=== PATIENT | female | born 1985 | race Caucasian/White ===

== ENCOUNTER 2022-05-31 17:33 | Inpatient (IN) | payer OTHER ==
[~2022-05-31] VITALS: Ht 157.5 cm; Wt 70.9 kg
--- NOTE | 2022-05-31 17:50 | NUR ---
Patient triaged and placed in AMBULANCE 1. VSS and patient appears in no acute distress at this time. Accompanied by cloth framer, awaiting available bed, and MD notified of need for MSE.
--- NOTE | 2022-05-31 17:55 | NUR ---
Pt presents to the ER BIB BLS c/o chest wall pain. Pt denies NVD. Pt in NAD VSS. Pt notes possible anxiety.
[2022-05-31 17:57] VITALS: BP_SYST 143
--- NOTE | 2022-05-31 18:00 | NUR ---
Pt giving blood sample for specimen collection with the upper and bottom lacer hand.
[2022-05-31] MEDS ORDERED: KETOROLAC TROMETHAMINE 60 MG/2 ML VIAL IM ONE (18:15)
--- NOTE | 2022-05-31 18:49 | NUR ---
Pt with radiology for CT scan. Pt transferred via W/C.
[2022-05-31 18:52] LABS: BASOPHILS % (AUTO) 0.5 % (0.0-2.0); EOSINOPHILS # (AUTO) 0.2 K/uL (0.0-0.4); EOSINOPHILS % (AUTO) 2.7 % (0.0-4.0); HEMATOCRIT 34.1 % (36-48); HEMOGLOBIN 10.8 g/dL (12.0-16.0); LYMPHOCYTES # (AUTO) 1.7 K/uL (1.0-5.5); LYMPHOCYTES % (AUTO) 24.4 % (20.5-51.5); MEAN CORPUSCULAR HEMOGLOBIN 25 pg (27-31); MEAN CORPUSCULAR HGB CONC 32 % (32-36); MEAN CORPUSCULAR VOLUME 78 fL (79.0-98.0); MONOCYTES # (AUTO) 0.5 K/uL (0.0-1.0); MONOCYTES % (AUTO) 6.8 % (1.7-9.3); NEUTROPHILS # (AUTO) 4.6 K/uL (1.8-7.7); NEUTROPHILS % (AUTO) 65.6 % (40.0-70.0); PLATELET COUNT (AUTO) 312 K/uL (130-430); RED BLOOD CELL COUNT(AUTO) 4.35 MIL/uL (4.2-6.2); RED CELL DISTRIBUTION WIDTH 16.8 % (9.0-15.0); WHITE BLOOD COUNT (AUTO) 7.1 K/uL (4.8-10.8)
[2022-05-31 19:15] LABS: ANION GAP 11 (5-15); CHLORIDE 102 mmol/L (98-107); CREATININE 0.73 mg/dL (0.55-1.30); GLUCOSE 97 mg/dL (70-99); POTASSIUM 3.7 mmol/L (3.5-5.1); SODIUM SERUM 135 mmol/L (136-145); UREA NITROGEN, BLOOD 20 mg/dL (8-21)
[2022-05-31 19:21] LABS: GFR AFRICAN AMERICAN 115 mL/min (>90)
[2022-05-31 19:25] LABS: ALANINE AMINOTRANSFERASE 32 U/L (12-78); ALBUMIN 3.4 g/dL (3.4-4.8); ASPARTATE AMINOTRANSFERASE 28 U/L (10-37)
[2022-05-31] MEDS ORDERED: *LOVENOX 1MG/KG Q12H/PHARMACY XX ONE (20:00)
[2022-05-31 20:01] LABS: TOTAL BILIRUBIN 0.1 mg/dL (0.0-1.0)
--- NOTE | 2022-05-31 20:20 | NUR ---
COVID SWAB COLLECTED
[2022-05-31] MEDS ORDERED: NITROGLYCERIN 0.4 MG TAB.SUBL SL ONE (21:00)
--- NOTE | 2022-05-31 21:10 | NUR ---
Admit bed requested Patient will be admitted to care of . Admitted to TELE unit. Diagnosis ACUTE CORONARY SYNDROME Inpatient (Yes or No) YES Observation (Yes or No) NO Orientation concerns or request close to nursing station (Yes or No) NO Covid Status PENDINIG On vent or bipap NO Isolation requirements NO Needs a sitter NO From Home (Yes or if No enter name of facility) YES Requires Dialysis (Yes or No) NO Med Rec Completed (Yes of No) PENDING
[2022-05-31 22:36] LABS: INR 0.9 (0.8-1.2); PROTHROMBIN TIME 9.8 SECS (9.5-12.5)
--- NOTE | 2022-05-31 22:51 | NUR ---
Note fatoumata in ED - 06/01/22 at 0155 by [id number] ASSISTING PRIMARY RN; NEIL CATH FR 16 USING ASEPTIC TECHNIQUE, NOTED SEDIMENT URINE OUTPUT YELLOW IN COLOR APPROX 20 CC.
[2022-05-31] MEDS ORDERED: ACETAMINOPHEN 325 MG TABLET PO PRN (23:00)
[2022-05-31] MEDS ORDERED: ONDANSETRON 4 MG ODT TAB PO PRN (23:00)
[2022-05-31] MEDS ORDERED: NALOXONE HCL 0.4 MG/ML AMP (NARCAN) IVP PRN (23:00)
[2022-05-31] MEDS ORDERED: MAG-AL HYDROX/SIMETH 30 ML UDC PO ONE (23:00)
[2022-05-31] MEDS ORDERED: MORPHINE 2 MG/ML INJ. SYRINGE IVP PRN (23:00)
[2022-05-31] MEDS ORDERED: TEMAZEPAM 15 MG CAPSULE PO PRN (23:00)
[2022-05-31] MEDS ORDERED: MORPHINE 4 MG INJ. 4 MG/ML VIAL IVP PRN (23:00)
[2022-05-31] MEDS ORDERED: PANTOPRAZOLE SODIUM 40 MG TAB PO ONE (23:00)
[2022-05-31] MEDS ORDERED: MAG-AL HYDROX/SIMETH 30 ML UDC PO PRN (23:00)
[2022-05-31] MEDS ORDERED: ENOXAPARIN SODIUM 60 MG/0.6 ML SYRINGE ONE (23:28)
--- NOTE | 2022-05-31 23:30 | NUR ---
Patient will be admitted to care of elevated troponin. Admitted to telly unit. Will go to room . Belongings list completed. Complete and up to date summary report printed. SBAR report to be given at bedside with opportunity for questions.with megan MOE
[2022-05-31 23:55] VITALS: BP_SYST 137
--- NOTE | 2022-05-31 23:55 | NUR ---
ADMISSION NOTE Received patient from ER via gurney. Patient admitted with diagnosis of ACUTE CORONARY SYNDROME. Patient is awake, alert, oriented X 4. Patient oriented to hospital room, call light, toileting, pain management and safety-teach back done. Patient informed that their room number is 109C. Personal belongings checked and Belongings List documented. Call light within reach.
--- NOTE | 2022-06-01 05:49 | NUR ---
CONSULTATION PAGED/CALLED Reason for Consultation: ELEVAED TROP Person Who was Notified: DR Shellie BOOTH VIA TEXT Consulting Physician: DR Shellie BOOTH Extrusion Press Adjuster Specialty: Ordering Physician: GUILLERMINA
[2022-06-01] MEDS: NITROGLYCERIN 0.4 MG TAB.SUBL SL PRN ×2 (06:30→18:30)
--- NOTE | 2022-06-01 06:56 | NUR ---
Pt complaining of severe 10/10 crushing chest pain with SOB. 3 doses of SL nitroglycerin given and 1 dose of 4mg morphine with no relief. Informed Dr Shellie Jones ordered STAT EKG
[2022-06-01 06:59] LABS: BASOPHILS % (AUTO) 0.6 % (0.0-2.0); EOSINOPHILS # (AUTO) 0.2 K/uL (0.0-0.4); EOSINOPHILS % (AUTO) 3.8 % (0.0-4.0); HEMATOCRIT 31.3 % (36-48); HEMOGLOBIN 10.3 g/dL (12.0-16.0); LYMPHOCYTES # (AUTO) 2.1 K/uL (1.0-5.5); LYMPHOCYTES % (AUTO) 34.7 % (20.5-51.5); MEAN CORPUSCULAR HEMOGLOBIN 25 pg (27-31); MEAN CORPUSCULAR HGB CONC 33 % (32-36); MEAN CORPUSCULAR VOLUME 77 fL (79.0-98.0); MONOCYTES # (AUTO) 0.6 K/uL (0.0-1.0); MONOCYTES % (AUTO) 9.3 % (1.7-9.3); NEUTROPHILS # (AUTO) 3.1 K/uL (1.8-7.7); NEUTROPHILS % (AUTO) 51.6 % (40.0-70.0); PLATELET COUNT (AUTO) 312 K/uL (130-430); RED BLOOD CELL COUNT(AUTO) 4.05 MIL/uL (4.2-6.2); RED CELL DISTRIBUTION WIDTH 16.5 % (9.0-15.0)
--- NOTE | 2022-06-01 07:22 | NUR ---
Informed Dr Jones of EKG results, ordered chest CT
[2022-06-01 07:26] LABS: CALCIUM 8.4 mg/dL (8.4-11.0); CREATININE 0.71 mg/dL (0.55-1.30); POTASSIUM 3.4 mmol/L (3.5-5.1)
[2022-06-01 07:34] LABS: ALBUMIN 2.9 g/dL (3.4-4.8); TOTAL BILIRUBIN 0.1 mg/dL (0.0-1.0)
[2022-06-01 08:00] VITALS: BP_SYST 109
[2022-06-01] MEDS: PANTOPRAZOLE SODIUM 40 MG TAB PO SCH (08:38)
[2022-06-01] MEDS: ASPIRIN 81 MG TABLET(ECOTRIN) PO SCH (08:38)
[2022-06-01] MEDS ORDERED: *HEPARIN PER PHARMACY XX PRN (10:30)
[2022-06-01] MEDS ORDERED: HEPARIN SODIUM,PORCINE 3000 UNITS/0.6 ML BOLUS IVP PRN (10:30)
[2022-06-01] MEDS ORDERED: HEPARIN SODIUM,PORCINE 2000 UNITS/0.4 ML BOLUS IVP PRN (10:30)
[2022-06-01] MEDS ORDERED: POTASSIUM CHLORIDE 20 MEQ TAB.PRT.SR PO ONE (10:30)
[2022-06-01] MEDS ORDERED: HEPARIN SODIUM,PORCINE 5,000 UNITS/ML VIAL IV ONE (10:45)
[2022-06-01] MEDS: HEPARIN 25,000 UNITS/D5W 250ML 250 ML IV PRN (10:59)
[2022-06-01] MEDS ORDERED: MORPHINE 4 MG INJ. 4 MG/ML VIAL IVP PRN (11:00)
[2022-06-01] MEDS ORDERED: ACETAMINOPHEN 325 MG TABLET PO PRN (11:00)
[2022-06-01] MEDS ORDERED: ONDANSETRON HCL 4 MG/2 ML VIAL IVP PRN (11:00)
[2022-06-01] MEDS ORDERED: NALOXONE HCL 0.4 MG/ML AMP (NARCAN) IVP PRN (11:00)
--- NOTE | 2022-06-01 11:08 | NUR ---
HEPARIN 4000 UNITS IVP GIVEN. HEPARIN DRIP INITIATED AT 900UNIT/HOUR =9ML. PTT ORDERED FOR 1700.
[2022-06-01] MEDS: MORPHINE 2 MG/ML INJ. SYRINGE IVP PRN ×3 (11:17→21:37)
--- NOTE | 2022-06-01 11:34 | NUR ---
DISCHARGE PLANNING Order to transfer to [facility] for heart cath. Per Dr Forrest, Tele level of care, will need to go with heparin drip. Faxed order/pt info to [facility]. Called & spoke with Kane Huitron [employer] value analyst ph [phone], has received order & is being reviewed. CM will be assigned & work on transfer, has my direct #, direct nsg station #, & Dr Forrest cell. Transfer packet with CD to nsg station. Addendum: 06/01/22 at 1433 by Funmi Esquivel RN Called & spoke with Elana [facility] [employer] Property Inspector. States that assigned [facility] CM is Jason & is away from the desk. Sent him a msg to return my call on transfer status. Informed TRP went up again. Earlier today spoke with pt and at bedside & both aware and agreeable with transfer to any [facility] that can do Heart Cath. Addendum: 06/01/22 at 1607 by Funmi Esquivel RN Called & spoke with JOSE Gomez at [facility], states that if trp going up will not take pt to [facility] may need to transfer to [facility] with Cardiac engineer geophysical laboratory. States will discuss with Pao JOSUE. Received call back from Jason at [facility], ph [phone], states spoke with Kane JOSUE & not taking pt due to increase in trp, on Heparin drip, & spoke with pt's nurse & having Chest pain. States to transfer to closest Hospital with engineer geophysical laboratory, [facility] with auth #[id number]. Use the same auth number for transportation, can use any ambulance. Called & spoke with Yovany at [facility], ph [phone] fax [phone], and informed, states to fax order/pt info and will review. Addendum: 06/01/22 at 1645 by Funmi Esquivel RN Called & spoke with Yovany coats CM leaving for the day and no after hrs CM. States will call [facility] if can accept pt. Spoke with pt at bedside and updated, states that is agreeable with [facility] but is not agreeable with [facility], would rather go to [facility] if [facility] does not accept. Called & informed Jason at [facility], ph [phone], states they will not take pt, that pt needs to go to [facility] & [facility] is not a [facility], they will not take pt. If no bed at [facility] will need to stay here until a bed found in a [facility], they are not taking pt. Updated pt's nurse. Informed if get a bed at [facility] to have Production Team Member assist with getting transportation with any ambulance with [facility] Auth#[id number], pt needs Nurse transport for Heparin drip & Tele monitoring. Updated CM Director.
[2022-06-01 12:00] VITALS: BP_SYST 126
--- NOTE | 2022-06-01 13:18 | NUR ---
DR. COOPER AT BEDSIDE.
--- NOTE | 2022-06-01 15:04 | NUR ---
URINE OBTAINE AND TAKEN TO LAB.
[2022-06-01 15:19] LABS: BILIRUBIN,URINE NEGATIVE (NEGATIVE); BLOOD, URINE NEGATIVE (NEGATIVE); CLARITY/URINE CLEAR (CLEAR); COLOR,URINE YELLOW (YELLOW); GLUCOSE,URINE NEGATIVE (NEGATIVE); KETONES,URINE 1+ (NEGATIVE); LEUKOCYTE ESTERASE ,URINE NEGATIVE (NEGATIVE); NITRITE, URINE NEGATIVE (NEGATIVE); PROTEIN URINE NEGATIVE (NEGATIVE); UROBILINOGEN,URINE 0.2 (0.2-1.0)
--- NOTE | 2022-06-01 15:30 | NUR ---
MORPHINE 2MG IVP GIVEN FOR C/P AND H/A 05/27.
[2022-06-01 15:44] LABS: BARBITURATE, URINE NEGATIVE (NEG <=200); BENZODIAZEPINE, URINE NEGATIVE (NEG <=150); CANNABINOID, URINE NEGATIVE (NEG <=50); COCAINE, URINE NEGATIVE (NEG <=150); METHAMPHETAMINES SCREEN,URINE NEGATIVE (NEG <=500); OPIATE, URINE POSITIVE (NEG <=100); PHENCYCLIDINE SCREEN,URINE NEGATIVE (NEG <=25); UR TRICYCLIC ANTIDEPRESSANTS NEGATIVE (NEG <=300); URINE AMPHETAMINE NEGATIVE (NEG <=500); URINE METHADONE NEGATIVE (NEG <=200); URINE OXYCODONE SCREEN NEGATIVE (NEG <=100); URINE PROPOXYPHENE SCREEN NEGATIVE (NEG <=300)
[2022-06-01 16:00] VITALS: BP_SYST 135
--- NOTE | 2022-06-01 16:10 | NUR ---
PT HAD SECOND EPISODE OF N/V. UNABLE TO EAT LUNCH.
--- NOTE | 2022-06-01 17:25 | NUR ---
[facility] CALLED AND STATED THAT THEY WILL TAKE THE PT ONCE THEY HAVE A BED. DR. SARMIENTO MADE AWARE AND STATED PLS SEE IF PT CAN TRANSFER TO [facility]. ABHI GAYTAN MADE AWARE AT STATED SHE WILL FOLLOW UP.
[2022-06-01 17:32] LABS: CALCIUM 8.6 mg/dL (8.4-11.0); CREATININE 0.59 mg/dL (0.55-1.30); POTASSIUM 3.8 mmol/L (3.5-5.1)
--- NOTE | 2022-06-01 17:38 | NUR ---
RECEIVED ORDER FOR ID. KATELYNN HARDY AT THIS TIME.
--- NOTE | 2022-06-01 17:53 | NUR ---
PER LUKAS ,ABHI LAFARO [facility] WAS CONTACTED AND STATED THEY ARE UNABLE TO TAKE THE PT, LUKAS STATED WE WILL WAIT FOR A BED TO COME AVAILABLE AT [facility]. PT MADE AWARE. ZOFRAN IVP GIVEN FOR N/V. PT STATES PAIN IS 3/10 TOLERABLE AT THIS TIME.
--- NOTE | 2022-06-01 18:00 | NUR ---
PT MADE AWARE PTT IS 71.3 A THERAPEUTIC LEVEL, NEW PTT ORDERED FOR FOR 5AM.
--- NOTE | 2022-06-01 19:47 | NUR ---
ENDORSED ALL CARE TO ZEE RN, PT'S AUTHORIZATION CODE FOR AMBULANCE ENDORSED TO HER.
[2022-06-01 20:24] VITALS: BP_SYST 123
--- NOTE | 2022-06-01 20:27 | NUR ---
RECEIVED PT LYING IN BED, NO DISTRESS NOTED. DENIES CP AT THIS TIME. PT IS HAVING VIVEROS WOULD LIKE EXCEDRIN. MD AT BEDSIDE WILL ASK TO ORDER MEDICATION.
--- NOTE | 2022-06-01 21:41 | NUR ---
DR. SARMIENTO CALLS Orders LIPID PANEL, CBC, CMP, TROPONIN at 0500 tomorrow 06/02/22
--- NOTE | 2022-06-01 22:15 | NUR ---
[facility] CALLED AND FOLLOWED UP SPOKE WITH CHOLO [phone] AND SHE SAID THAT SHE IS GOING TO START WORKING ON FINDING A BED . WILL WAIT FOR CALL BACK WITH BED INFO TO SET UP AMBULANCE GAVE TRANSFER CONSENT TO RN AND UPDATED RN . RESOURCE NURSE AWARE WELL.
[2022-06-02 01:36] VITALS: BP_SYST 141
[2022-06-02 06:56] LABS: ALBUMIN 3.1 g/dL (3.4-4.8); CALCIUM 8.5 mg/dL (8.4-11.0); CREATININE 0.48 mg/dL (0.55-1.30); POTASSIUM 3.8 mmol/L (3.5-5.1); TOTAL BILIRUBIN 0.3 mg/dL (0.0-1.0)
[2022-06-02 07:00] LABS: BASOPHILS % (AUTO) 0.4 % (0.0-2.0); EOSINOPHILS # (AUTO) 0.1 K/uL (0.0-0.4); EOSINOPHILS % (AUTO) 0.8 % (0.0-4.0); HEMATOCRIT 34.5 % (36-48); HEMOGLOBIN 11.3 g/dL (12.0-16.0); LYMPHOCYTES # (AUTO) 1.9 K/uL (1.0-5.5); LYMPHOCYTES % (AUTO) 23.9 % (20.5-51.5); MEAN CORPUSCULAR HEMOGLOBIN 26 pg (27-31); MEAN CORPUSCULAR HGB CONC 33 % (32-36); MEAN CORPUSCULAR VOLUME 78 fL (79.0-98.0); MONOCYTES # (AUTO) 0.7 K/uL (0.0-1.0); MONOCYTES % (AUTO) 8.6 % (1.7-9.3); NEUTROPHILS # (AUTO) 5.2 K/uL (1.8-7.7); NEUTROPHILS % (AUTO) 66.3 % (40.0-70.0); PLATELET COUNT (AUTO) 293 K/uL (130-430); RED BLOOD CELL COUNT(AUTO) 4.43 MIL/uL (4.2-6.2); RED CELL DISTRIBUTION WIDTH 16.4 % (9.0-15.0); WHITE BLOOD COUNT (AUTO) 7.8 K/uL (4.8-10.8)
--- NOTE | 2022-06-02 08:00 | NUR ---
Initial notes In bed, feels weak, on o2 2L, denies any cheat pain at this time. On heparin drip at 900units/hr, Ptt is 54.1 no adjustment needed per protocol. Enc. to call for help as needed. Call light within reach
[2022-06-02 08:13] VITALS: BP_SYST 135
[2022-06-02] MEDS: ASPIRIN 81 MG TABLET(ECOTRIN) PO SCH (08:32)
[2022-06-02] MEDS: PANTOPRAZOLE SODIUM 40 MG TAB PO SCH (08:32)
--- NOTE | 2022-06-02 08:38 | NUR ---
DISCHARGE PLANNING Called & spoke with Yovany at [facility], ph [phone], they accepted pt but are waiting for Tele bed. Anticipates having bed for pt later today. States pt will not have cardiac cath today, pt is accepted under Dr Jones. Addendum: 06/02/22 at 0918 by Funmi Esquivel RN Received call from Yovany [facility] to f/u if [facility] can take their pt into network with Heart Cath. They will cont to keep pt on list for transfer in unless we inform them otherwise. Called Jason GARCIA at [facility], ph [phone], no answer. Called & spoke with Melania [facility], ph [phone], & verified Jason walden CM assigned today with Drug Safety Associate Ben. Sent Jason a msg if can transfer pt & updated waiting for bed at [facility] & no heart cath today avail at [facility]. Addendum: 06/02/22 at 1013 by Funmi Esquivel RN Received call from Yovany at [facility], pt going to room 690B, report ph [phone], any time. Needs to stop by ER to be admitted first. Set up transport with Nurse/Tele monitoring with O2 with [facility] for fiber picker between 1115 & 1130, aware need to stop by ER first, ph [phone]. Updated pt & agreeable. Updated pt's nurse. Have not received call back from [facility]. Addendum: 06/02/22 at 1338 by Funmi Esquivel RN Received msg from Jason at [facility] & returned call. Updated pt was transferred to [facility] earlier today.
[2022-06-02] MEDS: HEPARIN 25,000 UNITS/D5W 250ML 250 ML IV PRN (08:39)
[2022-06-02 10:09] VITALS: BP_SYST 135
--- NOTE | 2022-06-02 10:20 | NUR ---
Notes Report given to Sukhjinder at [facility].
--- NOTE | 2022-06-02 10:59 | NUR ---
Notes Spoke to DR. Shellie Jones, Per MD little heplock IV ( heparin) upon transfer.
[2022-06-02] MEDS: MORPHINE 2 MG/ML INJ. SYRINGE IVP PRN (12:23)
--- NOTE | 2022-06-02 12:30 | NUR ---
transfer patient to [facility] for cardiac cath via acls with RN, heparin drip continue during transport since there is RN. all belongings sent with and made aware patient room no. in [place]
== END 2022-06-02 12:30 | disposition short-term general hospital (02) | DRG 282 ==
LOC: SED 17:33 → STU 21:11
PROVIDERS: ADMIT Internal Medicine; ATTEND Internal Medicine
DX: I21.4 Non-ST elevation (NSTEMI) myocardial infarction (principal); I24.9 Acute ischemic heart disease, unspecified; I10 Essential (primary) hypertension; Z79.899 Other long term (current) drug therapy; Z20.822 Contact with and (suspected) exposure to COVID-19
CPT/HCPCS: 36415; 71045; 80048; 80053; 80061; 80307; 81003; 82150; 83690; 83735; 84484; 84703; 85025; 85379; 85610-TC; 85730-TC; 93005; 93306; 96372; 99291; 99292; G0378; J1644; J1650; J1885; J2270; J2405